=== PATIENT | female | born 1955 | race Caucasian/White ===

== ENCOUNTER 2019-06-14 15:07 | Emergency (ER) | payer BC ==
--- NOTE | 2019-06-14 15:51 | EDM.PDOC ---
ED HPI GENERAL MEDICAL PROBLEM - General Chief Complaint: Cardiovascular Problem Stated Complaint: MED[facility] Time Seen by Provider: 06/14/19 15:42 Source of Information: Reports: Patient, Family, RN Notes Reviewed History Limitations: Reports: No Limitations - History of Present Illness INITIAL COMMENTS - FREE TEXT/NARRATIVE: 64-year-old female presents emergency department today complaint of shortness of breath, she has a known history of moderate persistent asthma is usually controlled with Singulair however today while she was working outside sudden onset of difficulty breathing felt it was typical for her as mass exacerbation she did use her rescue inhaler which helped significantly EMS services were called for transportation to ED. By the time she arrives to the ED she feels she is back to normal and does not have tightness in the chest - Related Data Allergies Allergy/AdvReac Type Severity Reaction Status Date / Time erythromycin base Allergy Abdominal Verified 06/14/19 15:20 [From Erythrocin] Pain iodine Allergy Hives Verified 06/14/19 15:20 Home Meds: Home Meds Albuterol Sulfate [Proair Hfa] 2 puff TOP ASDIRECTED PRN 06/14/19 [History] Budesonide/Formoterol [Symbicort 160-4.5 MCG] 1 puff INH DAILY 06/14/19 [History ] Fluticasone Propionate [Flonase] 1 spray TOP ASDIRECTED 06/14/19 [History] Venlafaxine [Effexor XR] 150 mg PO DAILY 06/14/19 [History] buPROPion [buPROPion XL] 300 mg PO DAILY 06/14/19 [History] predniSONE [Prednisone] 20 mg PO DAILY #3 tablet 06/14/19 [Rx] raNITIdine HCl [Ranitidine HCl] 150 mg PO DAILY 06/14/19 [History] Past Medical History HEENT History: Reports: Allergic Rhinitis, Cataract, Hard of Hearing Cardiovascular History: Reports: Blood Clots/VTE/DVT Respiratory History: Reports: Asthma Gastrointestinal History: Reports: Cholelithiasis TOURIST ADVISER History: Reports: , Spontaneous Musculoskeletal History: Reports: Fracture Neurological History: Reports: Other (See Below) Other Neuro History: pinched nerve in neck Psychiatric History: Reports: Anxiety, Depression Dermatologic History: Reports: Benign Melanoma - Past Surgical History HEENT Surgical History: Reports: Adenoidectomy, Tonsillectomy GI Surgical History: Reports: Cholecystectomy Female Surgical History: Reports: Section Musculoskeletal Surgical History: Reports: Knee Replacement, Other (See Below) Other Musculoskeletal Surgeries/Procedures:: carpal tunnel Social & Family History - Tobacco Use Smoking Status *Q: Never Smoker - Caffeine Use Caffeine Use: Reports: Coffee - Recreational Drug Use Recreational Drug Use: No ED ROS GENERAL - Review of Systems Review Of Systems: See Below Constitutional: Reports: No Symptoms Respiratory: Reports: Shortness of Breath, Wheezing Cardiovascular: Reports: No Symptoms GI/Abdominal: Reports: No Symptoms ED EXAM, GENERAL - Physical Exam Exam: See Below Exam Limited By: No Limitations General Appearance: Alert, WD/WN, No Apparent Distress Respiratory/Chest: No Respiratory Distress, No Accessory Muscle Use, Wheezing ( Faint wheeze during expiration) Cardiovascular: Regular Rate, Rhythm, No Murmur Course - Vital Signs Last Recorded V/S: Last Vital Signs Temp 98.6 F 06/14/19 15:17 Pulse 93 06/14/19 15:17 Resp 16 06/14/19 15:17 BP 122/71 06/14/19 15:17 Pulse Ox 92 L 06/14/19 15:17 Departure - Departure Time of Disposition: 15:50 Disposition: Home, Self-Care 01 Condition: Fair Clinical Impression: Asthma exacerbation Qualifiers: Asthma severity: moderate Asthma persistence: persistent Qualified Code(s): J45.41 - Moderate persistent asthma with (acute) exacerbation Prescriptions: predniSONE [Prednisone] 20 mg PO DAILY #3 tablet Instructions: Asthma Attack, Asthma, Adult, [id number] Referrals: PCP,None [Primary Care Provider] - Additional Instructions: Take the full course of prednisone, please follow-up with your primary care provider in next 3-5 days for reevaluation and adjustment of asthma medications as needed also development of asthma action plan. Call return to the emergency department worsening of symptoms - Assessment/Plan Plan: Assessment Acuity = acute Site and laterality = asthma exacerbation moderate persistent Etiology = probably secondary to community Manifestations = none Location of injury = Home Lab values = none Plan Elected to treat with prednisone 20 mg once a day for the next 3 days medications faxed to [facility], she will follow-up with her primary care provider for adjustment of medications and development of asthma action plan in next 3-5 days This note was dictated using [email or web address] voice recognition software please call with any questions on syntax or grammar.
== END 2019-06-14 15:57 | disposition home or self-care (01) ==
LOC: JP.ED 15:07
DX: J45.41 Moderate persistent asthma with (acute) exacerbation (principal); F32.9 Major depressive disorder, single episode, unspecified; F41.9 Anxiety disorder, unspecified; Z88.1 Allergy status to other antibiotic agents; Z91.048 Other nonmedicinal substance allergy status; Z79.51 Long term (current) use of inhaled steroids; Z79.899 Other long term (current) drug therapy; Z98.890 Other specified postprocedural states; Z90.49 Acquired absence of other specified parts of digestive tract
CPT/HCPCS: 99284

== ENCOUNTER 2023-08-17 20:36 | Emergency (ER) | payer MEDICARE, BC | END 2023-08-17 21:23 | disposition home or self-care (01) | LOC: JP.ED 20:36 | DX: T19.2XXA Foreign body in vulva and vagina, initial encounter (principal); J45.909 Unspecified asthma, uncomplicated; Z79.899 Other long term (current) drug therapy; Z88.1 Allergy status to other antibiotic agents; Z91.041 Radiographic dye allergy status | CPT/HCPCS: 99283 ==

== ENCOUNTER 2023-10-05 21:28 | Emergency (ER) | payer MEDICARE, BC ==
[2023-10-05] MEDS ORDERED: Albuterol/Ipratropium 3.0-0.5 MG/3 ML Neb Soln NEB ONE (21:53)
[2023-10-05 22:34] LABS: CORONAVIRUS COVID-19 NAA NEGATIVE (NEGATIVE); INFLUENZA A NAA NEGATIVE (NEGATIVE); INFLUENZA B NAA NEGATIVE (NEGATIVE); RESPIRATORY SYNCYTIAL VIR NAA NEGATIVE (NEGATIVE)
== END 2023-10-06 00:05 | disposition home or self-care (01) ==
LOC: JP.ED 21:28
DX: J45.909 Unspecified asthma, uncomplicated (principal); Z20.822 Contact with and (suspected) exposure to COVID-19; Z88.1 Allergy status to other antibiotic agents; Z91.041 Radiographic dye allergy status; Z91.013 Allergy to seafood
CPT/HCPCS: 0241U; 94640; 99285; J7620